=== PATIENT | female | born 1975 | race Hispanic/Latino ===

== ENCOUNTER → 2019-12-12 | Day surgery (SDC) | payer OTHER ==
[~2019-12-12] MED LIST: AMLODIPINE BESY10 MG PO; ARTHRITIS PAIN650 M3 PO; B COMPLEX1 EACH PO; DICLOFENAC PO; FENTANYL CITRATE/PF 100MCG/2 ML INJ ONE; GLUCOSAMINE PO; HYDROCHLOROTHIA25 MG PO; LEVOTHYROXINE50 MCG PO; LIDOCAINE HCL 1% 2 ML AMP ONE; LIDOCAINE HCL 2% LOCAL INJ 5 ML SDV VIAL INJ ONE; METOCLOPRAMIDE HCL 10 MG/2ML VIAL ONE; MIDAZOLAM HCL 2 MG/2 ML VIAL ONE; OMEPRAZOLE40 MG PO; PANTOPRAZOLE 40 MG 10ML VIAL ONE; PROPOFOL IV EMULSION 10 MG/ML 20 ML VIAL ONE; VIT D2 PO
[2019-12-12 09:50] VITALS: BP 110/67
--- NOTE | 2019-12-12 10:03 | Operative Report ---
DATE OF PROCEDURE: 12/12/2019 SURGEON: Glenn Benitez MD PROCEDURE: EGD with polypectomy and biopsies. INDICATION FOR EGD: Heartburn, indigestion, bloating. MEDICATIONS: The patient was done under MAC, please see anesthesiologist's note. PROCEDURE IN DETAIL: With the patient in left lateral decubitus position, flexible fiberoptic Olympus gastroscope was introduced into the esophagus under direct visualization without any difficulty. Several erosions were noted in the distal esophagus without active bleeding. The scope was then advanced with ease into the stomach traversing an approximately 4 cm hiatal hernia. Mucosa overlying the antrum and the body revealed some patchy erythema and low-grade to moderate edema. Biopsies were obtained and sent to stain for H pylori. The pylorus was of normal contour and shape, was intubated with ease, and the scope was advanced all the way to the second portion of the duodenum. The scope was then withdrawn slowly and biopsies were obtained from the proximal second portion and the duodenal bulb to rule out sprue. The scope was then withdrawn back into the stomach and multiple hyperplastic appearing polyps were noted in the body of the stomach and somewhat partially excised with the cold biopsy forceps. The scope was then retroflexed in the stomach and then, the previously described hiatal hernia was also noted in the retroflexed position. Whatever was visualized of the fundus appeared to be within normal limits. The scope was then straightened out and it was subsequently withdrawn. The patient tolerated the procedure well. IMPRESSION: 1. Erosive distal esophagitis. 2. Approximately 4 cm hiatal hernia. 3. Gastritis, biopsied. Biopsies sent to stain for Helicobacter pylori. 4. Gastric polyps, body, hyperplastic-appearing, some partially excised with cold biopsy forceps. 5. Rule out sprue. PLAN: Follow up histology. Initiate Protonix 40 mg one p.o. q.a.m. before meals. Glenn Benitez MD [facility] [place] /[id number] cc: Judy Thompson MD
== END | disposition home or self-care (01) ==
LOC: OR 06:31
PROVIDERS: ATTEND Internal Medicine Gastroenterology
DX: K29.70 Gastritis, unspecified, without bleeding (principal); K31.7 Polyp of stomach and duodenum; K22.10 Ulcer of esophagus without bleeding; K21.9 Gastro-esophageal reflux disease without esophagitis; K44.9 Diaphragmatic hernia without obstruction or gangrene; I10 Essential (primary) hypertension; E03.9 Hypothyroidism, unspecified; G47.33 Obstructive sleep apnea (adult) (pediatric); F41.9 Anxiety disorder, unspecified; Z01.810 Encounter for preprocedural cardiovascular examination; Z01.812 Encounter for preprocedural laboratory examination; Z11.59 Encounter for screening for other viral diseases; Z68.41 Body mass index [BMI] 40.0-44.9, adult
CPT/HCPCS: 43239; 81025; 93005; J2001; J2250; J2765; J3010; U0002